=== PATIENT | male | born 1940 | race Caucasian/White ===

== ENCOUNTER 2018-03-27 12:06 | Emergency (ER) | payer OTHER ==
[~2018-03-27] VITALS: Ht 180.3 cm; Wt 99.8 kg
--- NOTE | ~2018-03-27 | EKG ---
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 : 1940 Requested By: Sarah Rodriguez Order Number: [id number] MD: Dixno Joiner Measurements Intervals [place] Rate: 91 P: TN: QRS: 14 QRSD: 138 T: 233 QT: 366 QTc: 451 Interpretive Statements Atrial fibrillation Ventricular premature complex IVCD, consider atypical RBBB Nonspecific T abnormalities, lateral leads No previous ECG available for comparison Electronically Signed On 03-27-2018 15:41:12 [employer] by Dixon Joiner [email or web address] <ELECTRONICALLY SIGNED> By: Dixon Joiner MD 03/27/18 1541 1214 1214 MD AGNES Cantu
[2018-03-27] MEDS ORDERED: LOPRESSOR100 M1 PO (12:11)
[2018-03-27] MEDS ORDERED: ASPIR 8181 MG PO (12:11)
[2018-03-27] MEDS ORDERED: CARDIZEM CD240 MG PO (12:12)
[2018-03-27] MEDS ORDERED: DIGOXIN125 MCG PO (12:12)
[2018-03-27] MEDS ORDERED: LASIX 20 MG TAB20 MG PO (12:12)
[2018-03-27] MEDS ORDERED: TRICOR145 MG PO (12:12)
[2018-03-27] MEDS ORDERED: FLOMAX0.4 MG PO (12:12)
[2018-03-27] MEDS ORDERED: COUMADIN 5 MG TA5 M1 PO (12:12)
[2018-03-27] MEDS ORDERED: LISINOPRIL20 MG PO (12:12)
[2018-03-27] MEDS ORDERED: CRESTOR20 MG PO (12:12)
[2018-03-27 12:21] LABS: ABSOLUTE NEUTROPHILS 4.1 thou/uL (1.4-8.2); BASOPHILS 0.9 % (0.0-2.0); EOSINOPHILS 0.8 % (0.0-3.0); HEMOGLOBIN 16.1 gm/dL (14.0-18.0); LYMPHOCYTES 22.5 % (24.0-44.0); MCH 30.2 pg (26.0-34.0); MCHC 33.5 g/dL (28.0-37.0); MCV 89.9 fL (80.0-100.0); MONOCYTES 5.7 % (1.0-8.0); PLATELET COUNT 133 thou/uL (150-400); POLYS 70.1 % (36.0-66.0); RBC 5.33 mil/uL (4.50-6.00); RDW 14.8 % (10.5-14.5); WBC 5.9 thou/uL (4.0-11.0)
[2018-03-27 12:28] LABS: CALCIUM 9.5 mg/dL (8.5-10.1); CREATININE 1.5 mg/dL (0.7-1.3)
[2018-03-27 12:29] LABS: POTASSIUM 4.7 mmol/L (3.5-5.1)
[2018-03-27 12:42] LABS: URINE BILIRUBIN NEGATIVE (Negative); URINE BLOOD 1+ (Negative); URINE CLARITY CLEAR; URINE COLOR YELLOW; URINE GLUCOSE-RANDOM* NEGATIVE (Negative); URINE KETONES NEGATIVE (Negative); URINE LEUKOCYTES-REFLEX NEGATIVE (Negative); URINE NITRITE-REFLEX NEGATIVE (Negative); URINE PROTEIN (DIPSTICK) 2+ (Negative); URINE SPECIFIC GRAVITY 1.015 (1.005-1.035); URINE UROBILINOGEN 0.2 E.U./dl (0.2-1.0)
[2018-03-27 12:47] LABS: AMORPHOUS URATES Few /LPF (None Seen); BACTERIA-REFLEX None Seen /HPF (None Seen); CASTS None Seen /LPF (None Seen); SQUAMOUS None Seen /LPF (0-3); URINE RBC None Seen /HPF (0-2); URINE WBC-REFLEX None Seen /HPF (0-5)
[2018-03-27 13:10] LABS: INR 2.5; PROTIME 26.1 Seconds (9.3-11.4)
[2018-03-27] MEDS ORDERED: ZOFRAN ODT4 MG PO (15:47)
[2018-03-27] MEDS ORDERED: ANTIVERT25 MG PO (15:47)
[2018-03-27 16:36] VITALS: BP 179/110
== END 2018-03-27 16:36 | disposition home or self-care (01) ==
LOC: ER 12:06
PROVIDERS: Emergency Medicine
DX: R42 Dizziness and giddiness (principal); R11.2 Nausea with vomiting, unspecified; R53.1 Weakness; I10 Essential (primary) hypertension; E78.5 Hyperlipidemia, unspecified; I48.91 Unspecified atrial fibrillation; Z90.49 Acquired absence of other specified parts of digestive tract; Z96.653 Presence of artificial knee joint, bilateral